=== PATIENT | male | born 1990 ===

== ENCOUNTER 2016-11-21 03:53 | Emergency (ER) | payer SELFPAY ==
--- NOTE | 2016-11-21 05:14 | C.PDOC ---
History Of Present Illness A 26 year old male presents to the emergency room with complaints of dizziness on Thu. Patient reports that he was walking in the park yesterday when he began to feel "dizzy". Patient describes the sensation as a funny felling in his head. Patient states that he blacked out for 4 seconds and his friend caught him before he fell. Patient refused medical attention from the ambulance at the time. Patient reports that he felt "funny in the head" all day today. Patient denies any headaches, fever, chills, visual changes, vomiting, chest pain, shortness of breath, or any other complaints. Patient notes that he had another episode of feeling dizzy early this morning, and felt like he was going to pass out, but didn't. no cp, no sob, no leg pain or swelling. Time Seen by Provider: 11/21/16 04:27 Chief Complaint (Nursing): Dizziness/Lightheaded History Per: Patient History/Exam Limitations: no limitations Onset/Duration Of Symptoms: Days (2) Current Symptoms Are (Timing): Still Present Activity At Onset Of Symptoms: Walking Associated Symptoms Preceding Syncopal Episode: No Predromal Symptoms (Sudden Onset) Seizure Or Post-ictal Symptoms: None Fall Associated With With Symptoms: No Severity: Mild - Symptoms Of CVA Associated Symptoms: denies: Impaired Speech, Seizure Activity, New Vision Deficit(Left), New Vision Deficit(Right), Decreased Ability To Walk, New Confusion Past Medical History Reviewed: Historical Data, Nursing Documentation, Vital Signs Vital Signs: Last Vital Signs Temp 98 F 11/21/16 06:42 Pulse 62 11/21/16 06:42 Resp 20 11/21/16 06:42 BP 137/87 11/21/16 06:42 Pulse Ox 98 11/21/16 06:42 - Medical History PMH: Asthma Denies: Chronic Kidney Disease Family History: States: Unknown Family Hx - Social History Hx Tobacco Use: No Hx Alcohol Use: Yes Hx Substance Use: Yes - Immunization History Hx Tetanus Toxoid Vaccination: No Hx Influenza Vaccination: No Hx Pneumococcal Vaccination: No Review Of Systems Constitutional: Negative for: Fever, Chills Eyes: Negative for: Vision Change Cardiovascular: Negative for: Chest Pain Respiratory: Negative for: Shortness of Breath Gastrointestinal: Negative for: Vomiting Neurological: Positive for: Dizziness. Negative for: Headache Physical Exam - Physical Exam Appears: Well, Non-toxic, No Acute Distress Skin: Normal Color, Warm, Dry Head: Atraumatic, Normacephalic Eye(s): bilateral: Normal Inspection, PERRL, EOMI Ear(s): Bilateral: Normal Oral Mucosa: Moist Neck: Normal ROM, No Midline Cervical Tenderness, Supple Cardiovascular: Rhythm Regular Respiratory: Normal Breath Sounds, No Rales, No Rhonchi, No Wheezing Gastrointestinal/Abdominal: Soft, No Tenderness, No Guarding, No Rebound Back: No CVA Tenderness, No Vertebral Tenderness Extremity: Normal ROM, No Tenderness Neurological/Psych: Oriented x3, Normal Speech, Normal Cognition, Normal Cranial Nerves, No Cerebellar Signs (Normal finger to nose test. No pronator drift. TAD intact. ), Normal Motor, Normal Sensation, Normal Reflexes, No Romberg Gait: Steady (Able to walk heel to toe, tandem, with steady gait) ED Course And Treatment - Laboratory Results Result Diagrams: 11/21/16 05:40 11/21/16 05:40 ECG: Interpreted By Me, Viewed By Me ECG Interpretation: Normal Interpretation Of ECG: sinus jaiden with sinus arhythmia Rate From EC O2 Sat by Pulse Oximetry: 100 Pulse Ox Interpretation: Normal - CT Scan/US CT Head Other Rad Studies (CT/US): Read By Radiologist, Radiology Report Reviewed CT/US Interpretation: Normal head/brain CT Medical Decision Making Medical Decision Making: pt feeling well. labs reviewed and normal, head ct neg. no dizziness at this time. will d/c to f/u in med clinic. Disposition Counseled Patient/Family Regarding: Diagnosis, Need For Followup - Disposition Referrals: [facility] [Outside] [facility] [Outside] Disposition: HOME/ ROUTINE Disposition Time: 06:30 Condition: GOOD Additional Instructions: Follow up in medical clinic- call for an appointment. Drink increased fluids. Return to ER for any worsening symptoms. Instructions: Near Syncope (ED), Dizziness (ED) Forms: General Discharge Instructions Print Language: KYRGYZ - Clinical Impression Clinical Impression: Dizziness, Near syncope - Scribe Statement The provider has reviewed the documentation as recorded by the Scribe Miguel Grossman All medical record entries made by the Scribe were at my direction and personally dictated by me. I have reviewed the chart and agree that the record accurately reflects my personal performance of the history, physical exam, medical decision making, and the department course for this patient. I have also personally directed, reviewed, and agree with the discharge instructions and disposition.
[2016-11-21 05:38] LABS: RBC URINE < 1 /hpf (0-3); URINE BILIRUBIN NEGATIVE (NEGATIVE); URINE BLOOD NEGATIVE (NEGATIVE); URINE COLOR Straw (YELLOW); URINE GLUCOSE (UA) NORMAL (Normal); URINE KETONE NEGATIVE (NEGATIVE); URINE LEUKOCYTE ESTERASE NEG Leu/uL (Negative); URINE PROTEIN NEGATIVE (NEGATIVE); URINE UROBILINOGEN NORMAL mg/dL (0.2-1.0); WBC URINE 3 /hpf (0-5)
[2016-11-21 05:42] LABS: BASO % 0.5 % (0.0-2.0); EOS # 0.3 K/uL (0.0-0.7); HEMATOCRIT 44.8 % (35.0-51.0); LYMPH # 2.4 K/uL (1.0-4.3); LYMPH % 25.5 % (20.0-40.0); MEAN CELL VOLUME 88.7 fL (80.0-94.0); MEAN CORPUSCULAR HEMOGLOBIN 29.4 pg (27.0-31.0); MEAN CORPUSCULAR HGB CONC 33.2 g/dL (33.0-37.0); MEAN PLATELET VOLUME 8.8 fL (7.2-11.7); MONO # 0.6 K/uL (0.0-0.8); MONO % 6.8 % (0.0-10.0); RED CELL DISTRIBUTION WIDTH 13.4 % (11.5-14.5); WHITE BLOOD COUNT 9.5 K/uL (4.8-10.8)
[2016-11-21 05:53] LABS: CHLORIDE 102 mmol/L (98-107)
[2016-11-21 05:54] LABS: POTASSIUM 3.8 mmol/L (3.6-5.2); SODIUM 139 mmol/L (132-148)
[2016-11-21 05:56] LABS: ALB/GLOB RATIO 1.6 (1.0-2.1); ALKALINE PHOSPHATASE 45 U/L (38-126); ALT/SGPT 28 U/L (21-72); AST/SGOT 28 U/L (17-59); BILIRUBIN,TOTAL 0.4 mg/dL (0.2-1.3); BLOOD UREA NITROGEN 9 mg/dL (9-20); CARBON DIOXIDE 26 mmol/L (22-30); GFR AFRICAN-AMERICAN > 60
[2016-11-21 05:57] LABS: ALCOHOL SERUM < 10 mg/dl (0-10); CALCIUM 8.8 mg/dl (8.6-10.4); GLUCOSE,RANDOM 92 mg/dL (75-110)
--- NOTE | 2016-11-21 06:03 | CT ---
EXAM: CT Head Without Intravenous Contrast CLINICAL HISTORY: 26 years old, male; Signs and symptoms; Dizziness; Additional info: Dizzy near syncope TECHNIQUE: Axial computed tomography images of the head/brain without intravenous contrast. This CT exam was performed using one or more of the following dose reduction techniques: automated exposure control, adjustment of the mA and/or kV according to patient size, and/or use of iterative reconstruction technique. COMPARISON: No relevant prior studies available. FINDINGS: Brain: Unremarkable. No hemorrhage. No significant white matter disease. No edema. Ventricles: Unremarkable. No ventriculomegaly. Bones/joints: Unremarkable. No acute fracture. Soft tissues: Unremarkable. Sinuses: Unremarkable as visualized. No acute sinusitis. Mastoid air cells: Unremarkable as visualized. No mastoid effusion. IMPRESSION: Normal head/brain CT.
[2016-11-21 06:45] VITALS: BP 137/87; PULSE 62; RESP 20; TEMP 98
[2016-11-21 06:48] VITALS: O2SAT 100
--- NOTE | 2017-01-19 14:45 | CARD ---
APPROVED REPORT EKG Measurement Heart [id number] <Conclusion> Sinus bradycardia with sinus arrhythmia Otherwise normal ECG
== END 2016-11-21 06:42 | disposition home or self-care (01) ==
LOC: C.ER 03:53
DX: R42 Dizziness and giddiness (principal); R55 Syncope and collapse
CPT/HCPCS: 70450; 80053; 81001; 85025; 99285; G0480

== ENCOUNTER 2016-12-18 01:16 | Emergency (ER) | payer SELFPAY ==
[2016-12-18 01:26] VITALS: BP 178/97; PULSE 87; RESP 20; TEMP 98.5; O2SAT 99
[2016-12-18] MEDS ORDERED: Acetaminophen-Codeine 300/30 mg Tab PO STA (02:04)
[2016-12-18] MEDS ORDERED: Acetaminophen-Codeine 300/30 mg Tab PO ONE (02:07)
--- NOTE | 2016-12-18 02:10 | C.PDOC ---
History Of Present Illness Please follow up with Dentist Take meds as prescribed Return to ER if worse Time Seen by Provider: 12/18/16 01:31 Chief Complaint (Nursing): Dental Pain Past Medical History Vital Signs: Last Vital Signs Temp 98.5 F 12/18/16 01:24 Pulse 87 12/18/16 01:24 Resp 20 12/18/16 01:24 BP 178/97 H 12/18/16 01:24 Pulse Ox 99 12/18/16 02:10 - Medical History PMH: Asthma Denies: Chronic Kidney Disease Family History: States: Unknown Family Hx - Social History Hx Tobacco Use: No Hx Alcohol Use: Yes Hx Substance Use: Yes - Immunization History Hx Tetanus Toxoid Vaccination: No Hx Influenza Vaccination: No Hx Pneumococcal Vaccination: No ED Course And Treatment O2 Sat by Pulse Oximetry: 99 Disposition Counseled Patient/Family Regarding: Diagnosis, Need For Followup, Rx Given - Disposition Disposition: HOME/ ROUTINE Disposition Time: 02:12 Condition: STABLE Additional Instructions: Please follow up with Dentist Take meds as prescribed Return to ER if worse Prescriptions: Acetaminophen with Codeine [Tylenol with Codeine #3 Tablet] 2 each PO QID #14 tablet Penicillin VK [Pen-Vee K] 2 tab PO BID #28 tab Instructions: Toothache (ED) - Clinical Impression Clinical Impression: Pain, dental
--- NOTE | 2016-12-18 02:13 | C.PDOC ---
History Of Present Illness 26 y/o male complaining of right sided lower tooth pain for the last two days associated with right sided facial swelling. Denies any trouble swallowing, throat swelling, fever, chills, rash, or sore throat. Time Seen by Provider: 12/18/16 01:31 Chief Complaint (Nursing): Dental Pain History Per: Patient History/Exam Limitations: no limitations Onset/Duration Of Symptoms: Days (2) Current Symptoms Are (Timing): Still Present Severity: Moderate Quality: Positive for: "Pain" Recent travel outside of the [place]: No Additional History Per: Patient Past Medical History Vital Signs: Last Vital Signs Temp 98.5 F 12/18/16 01:24 Pulse 87 12/18/16 01:24 Resp 20 12/18/16 01:24 BP 178/97 H 12/18/16 01:24 Pulse Ox 99 12/18/16 02:15 - Medical History PMH: Asthma Denies: Chronic Kidney Disease Family History: States: Unknown Family Hx - Social History Hx Tobacco Use: No Hx Alcohol Use: Yes Hx Substance Use: Yes - Immunization History Hx Tetanus Toxoid Vaccination: No Hx Influenza Vaccination: No Hx Pneumococcal Vaccination: No Review Of Systems Except As Marked, All Systems Reviewed And Found Negative. Constitutional: Negative for: Fever, Chills ENT: Positive for: Mouth Pain. Negative for: Throat Pain, Throat Swelling Physical Exam - Physical Exam Appears: Non-toxic Skin: Normal Color, Warm, Dry Head: Atraumatic, Normacephalic Eye(s): bilateral: Normal Inspection Ear(s): Bilateral: Normal Nose: Normal Oral Mucosa: Moist Tongue: Normal Appearing, No Swelling, No Lesions Lips: Normal Appearing, No Swelling Teeth: No Caries (No obvious) Gingiva: Erythema (localized, right sided posterior mandibular. ), Tender ( Right posterior mandibular), No Abscess Throat: Normal, No Erythema Neck: Normal, Normal ROM, Supple Chest: Symmetrical, No Deformity, No Tenderness Cardiovascular: Rhythm Regular Respiratory: Normal Breath Sounds Extremity: Normal ROM Neurological/Psych: Oriented x3, Normal Speech Gait: Steady ED Course And Treatment O2 Sat by Pulse Oximetry: 99 (RA) Pulse Ox Interpretation: Normal Progress Note: Patient given Tylenol and Penicillin VK. He was instructed to follow up with a Dentist. Medical Decision Making Medical Decision Making: Please follow up with Dentist Take meds as prescribed Return to ER if worse Disposition Doctor Will See Patient In The: ED Counseled Patient/Family Regarding: Diagnosis - Disposition Disposition: HOME/ ROUTINE Disposition Time: 02:48 Condition: STABLE Additional Instructions: Please follow up with Dentist Take meds as prescribed Return to ER if worse Prescriptions: Acetaminophen with Codeine [Tylenol with Codeine #3 Tablet] 2 each PO QID #14 tablet Penicillin VK [Pen-Vee K] 2 tab PO BID #28 tab Instructions: Toothache (ED) - Clinical Impression Clinical Impression: Pain, dental - Scribe Statement The provider has reviewed the documentation as recorded by the Scribe Karen Deleon
== END 2016-12-18 02:18 | disposition home or self-care (01) ==
LOC: C.ER 01:16
DX: K08.89 Other specified disorders of teeth and supporting structures (principal)

== ENCOUNTER 2017-01-18 04:42 | Emergency (ER) | payer SELFPAY ==
--- NOTE | 2017-01-18 05:04 | C.PDOC ---
Time Seen by Provider: 01/18/17 04:57 Chief Complaint (Nursing): Anxiety Past Medical History - Medical History PMH: Asthma Denies: Chronic Kidney Disease Family History: States: Unknown Family Hx - Social History Hx Tobacco Use: No Hx Alcohol Use: Yes Hx Substance Use: Yes - Immunization History Hx Tetanus Toxoid Vaccination: No Hx Influenza Vaccination: No Hx Pneumococcal Vaccination: No
--- NOTE | 2017-01-18 05:05 | C.PDOC ---
History Of Present Illness Patient is a 26 year old male who presents to the ER with a complaint of feeling SOB. Patient states he got home from work and laid down; he reports feeling SOB and states he woke up shaking. Denies cough, chest pain, fever or any PMHx. Time Seen by Provider: 01/18/17 04:57 Chief Complaint (Nursing): Anxiety History Per: Patient History/Exam Limitations: no limitations Onset/Duration Of Symptoms: Hrs Current Symptoms Are (Timing): Still Present Initiating Event: Other (Not known) Exacerbating Factor(s): Laying Flat Current Respiratory Medications: None Associated Symptoms: denies: Fever, Chest Pain, Bloody Cough, Productive Cough Recent travel outside of the [place]: No Past Medical History Reviewed: Historical Data, Nursing Documentation, Vital Signs Vital Signs: Last Vital Signs Temp 98 F 01/18/17 05:04 Pulse 94 H 01/18/17 05:04 Resp 20 01/18/17 05:04 BP 128/68 01/18/17 05:04 Pulse Ox 100 01/18/17 05:04 - Medical History PMH: Asthma Surgical History: No Surg Hx Family History: States: Unknown Family Hx - Social History Hx Tobacco Use: No Hx Alcohol Use: Yes Hx Substance Use: Yes - Immunization History Hx Tetanus Toxoid Vaccination: No Hx Influenza Vaccination: No Hx Pneumococcal Vaccination: No Review Of Systems Constitutional: Negative for: Fever Cardiovascular: Negative for: Chest Pain Respiratory: Positive for: Shortness of Breath. Negative for: Cough Physical Exam - Physical Exam Appears: Non-toxic, No Acute Distress Skin: Normal Color, Warm, Dry Head: Atraumatic, Normacephalic Oral Mucosa: Moist Chest: Symmetrical, No Tenderness Cardiovascular: Rhythm Regular, No Murmur Respiratory: Normal Breath Sounds, No Rales, No Rhonchi, No Wheezing Gastrointestinal/Abdominal: Soft, No Tenderness Neurological/Psych: Oriented x3, Normal Speech, Normal Cognition ED Course And Treatment ECG: Interpreted By Me ECG Rhythm: Sinus Bradycardia ECG Interpretation: Normal Rate From EC - Radiology CXR: Interpreted by Me CXR Interpretation: Yes: No Acute Disease Medical Decision Making Medical Decision Making: Impression: 26 year old with SOB Plan: * EKG * Ativan * CXR Pt stable in the ED with PaO2 100% CXR and EKG normal Sympt c/w anxiety Plan dc home crc f/u Disposition Counseled Patient/Family Regarding: Diagnosis, Need For Followup - Disposition Disposition: HOME/ ROUTINE Disposition Time: 06:17 Condition: GOOD Instructions: Generalized Anxiety Disorder (ED) Print Language: SETSWANA - Clinical Impression Clinical Impression: Anxiety - Scribe Statement The provider has reviewed the documentation as recorded by the Zahraibcheng Witt All medical record entries made by the Zahraibcheng were at my direction and personally dictated by me. I have reviewed the chart and agree that the record accurately reflects my personal performance of the history, physical exam, medical decision making, and the department course for this patient. I have also personally directed, reviewed, and agree with the discharge instructions and disposition.
[2017-01-18 06:30] VITALS: BP 107/46; PULSE 60; RESP 16; TEMP 97.6; O2SAT 98
--- NOTE | 2017-01-18 08:57 | RAD ---
PROCEDURE: CHEST RADIOGRAPH, 1 VIEW HISTORY: Shortness of breath COMPARISON: 05/30/2015 FINDINGS: LUNGS: Clear. PLEURA: No pneumothorax or pleural fluid seen. CARDIOVASCULAR: Normal. OSSEOUS STRUCTURES: No significant abnormalities. VISUALIZED UPPER ABDOMEN: Normal. OTHER FINDINGS: None. IMPRESSION: No active disease.
== END 2017-01-18 06:30 | disposition home or self-care (01) ==
LOC: C.ER 04:42
DX: F41.9 Anxiety disorder, unspecified (principal)

== ENCOUNTER 2017-02-07 01:45 | Emergency (ER) | payer SELFPAY ==
[2017-02-07 02:17] VITALS: BP 142/70; PULSE 62; RESP 18; TEMP 98.3; O2SAT 97
--- NOTE | 2017-02-07 02:32 | C.PDOC ---
History Of Present Illness 27 year old male presents to the ED with complaints of dizziness that worsened after smoking marijuana. Patient has nearly monthly ER visits for similar complaints. The last Time Seen by Provider: 02/07/17 02:27 Chief Complaint (Nursing): Dizziness/Lightheaded Past Medical History Vital Signs: Last Vital Signs Temp 98.3 F 02/07/17 02:13 Pulse 62 02/07/17 02:13 Resp 18 02/07/17 02:13 BP 142/70 02/07/17 02:13 Pulse Ox 97 02/07/17 02:32 - Medical History PMH: Asthma Denies: Chronic Kidney Disease Family History: States: Unknown Family Hx - Social History Hx Tobacco Use: No Hx Alcohol Use: Yes Hx Substance Use: Yes - Immunization History Hx Tetanus Toxoid Vaccination: No Hx Influenza Vaccination: Yes Hx Pneumococcal Vaccination: No ED Course And Treatment O2 Sat by Pulse Oximetry: 97 Medical Decision Making Medical Decision Making: smokes weed daily, wonders why he feels dizzy occasionally w/u 11/24 for same neg with + THC declines repeat w/u with informed consent to f/u in opt clinic and cease substances of abuse. Disposition Doctor Will See Patient In The: Office Counseled Patient/Family Regarding: Studies Performed, Diagnosis - Disposition Referrals: [facility] [Outside] [facility] [Outside] Disposition: HOME/ ROUTINE Disposition Time: 02:32 Condition: GOOD Additional Instructions: follow-up in our outpatient Clinic or the [facility] for evaluation of Anxiety/substance abuse. Instructions: Cannabis Abuse (ED), Anxiety (ED) - Clinical Impression Clinical Impression: Anxiety, Dizzy, Cannabis abuse - Scribe Statement The provider has reviewed the documentation as recorded by the Scribcheng Flores All medical record entries made by the Scribe were at my direction and personally dictated by me. I have reviewed the chart and agree that the record accurately reflects my personal performance of the history, physical exam, medical decision making, and the department course for this patient. I have also personally directed, reviewed, and agree with the discharge instructions and disposition.
== END 2017-02-07 02:40 | disposition home or self-care (01) ==
LOC: C.ER 01:45
DX: F12.180 Cannabis abuse with cannabis-induced anxiety disorder (principal); R42 Dizziness and giddiness